=== PATIENT | female | born 1995 | race Caucasian/White ===

== ENCOUNTER 2017-09-11 18:25 | Emergency (ER) | payer MEDICAID ==
[~2017-09-11] VITALS: Ht 165.1 cm; Wt 88.1 kg
[2017-09-11 18:37] VITALS: BP 115/76
--- NOTE | 2017-09-11 19:04 | NUR ---
Patient ambulated to bed 8. RN evaluating patient at bedside.
[2017-09-11 20:31] LABS: APPEARANCE,URINE SL CLOUDY (CLEAR); BILIRUBIN,URINE NEGATIVE (NEGATIVE); BLOOD, URINE 3+ (NEGATIVE); COLOR,URINE YELLOW (YELLOW); LEUKOCYTE ESTERASE ,URINE 1+ (NEGATIVE); NITRITE, URINE NEGATIVE (NEGATIVE); UGLUCOSE NEGATIVE (NEGATIVE)
[2017-09-11 20:36] LABS: RBC,URINE 11-20 (MOD) /HPF (0-5); WBC,URINE 6-15 (FEW) /HPF (0-5)
--- NOTE | 2017-09-11 22:38 | NUR ---
Dr. Kurtz evaluating patient at bedside. Female stuffed casing tier Modesta Merritt EMT with doctor.
--- NOTE | 2017-09-11 22:43 | NUR ---
FEMALE CHAPERONED FOR DR. HASSAN DURING PELVIC EXAM
--- NOTE | 2017-09-12 00:50 | NUR ---
Patient discharged with v/s stable. Written and verbal after care instructions given and explained. Patient alert, oriented and verbalized understanding of instructions. Ambulatory with steady gait. All questions addressed prior to discharge. ID band removed. Patient advised to follow up with PMD. Rx of FLUCONAZOLE 150 MG given. Patient educated on indication of medication including possible reaction and side effects. Opportunity to ask questions provided and answered.
[2017-09-12 01:21] VITALS: BP 130/71
[2017-09-15 06:21] LABS: CHLAMYDIA TRACHOMATIS AMP DNA Positive (Negative)
== END 2017-09-12 00:50 | disposition home or self-care (01) ==
LOC: MED 18:25
DX: B37.3 Candidiasis of vulva and vagina (principal); J45.909 Unspecified asthma, uncomplicated
CPT/HCPCS: 36415; 81001; 81025; 87086; 87210; 87491; 99284

== ENCOUNTER 2017-10-09 02:20 | Emergency (ER) | payer MEDICAID ==
[~2017-10-09] VITALS: Ht 162.6 cm; Wt 88.9 kg
[2017-10-09 02:29] VITALS: BP 138/72
--- NOTE | 2017-10-09 02:32 | NUR ---
PT AMBULATED TO ER BED 2 WITH STEADY GAIT
[2017-10-09] MEDS ORDERED: ONDANSETRON 4 MG/2 ML VIAL IVP ONE (02:35)
[2017-10-09] MEDS ORDERED: NACL 0.9% 1,000 ML IV ONE (02:35)
[2017-10-09] MEDS ORDERED: KETOROLAC 30 MG/ML VIAL IVP ONE (02:55)
--- NOTE | 2017-10-09 03:11 | NUR ---
22Y/F PRESENTS TO ER C/O GENERALIZED BODY PAIN, N/V. PMH ASTHMA, NKA. PT STATES SHE WOKE UP NAUSEOUS W/ VOMITING X4, DENIES DIARRHEA. PT HAS GENERALIZED BODY PAIN, AND DIZZINESS. PT AA&OX4. DENIES SOB. IN BED SIDE RAIL UP X1, ER MD NOTIFIED OF PT STATUS.
[2017-10-09 03:48] VITALS: BP 138/72
--- NOTE | 2017-10-09 03:49 | NUR ---
Patient discharged with v/s stable. Written and verbal after care instructions given and explained. Patient alert, oriented and verbalized understanding of instructions. Ambulatory with steady gait. All questions addressed prior to discharge. ID band removed. Patient advised to follow up with PMD. Rx of MOTRIN 800MG, TAMIFLU 75MG, ZOFRAN 8MG, PREDNISONE 20MG given. Patient educated on indication of medication including possible reaction and side effects. Opportunity to ask questions provided and answered.
== END 2017-10-09 03:49 | disposition home or self-care (01) ==
LOC: MED 02:20
DX: J11.1 Influenza due to unidentified influenza virus with other respiratory manifestations (principal)
CPT/HCPCS: 81025; 96361; 96374; 96375; 99284; J1885; J2405; J7030

== ENCOUNTER 2024-02-22 08:30 | Emergency (ER) | payer SELFPAY ==
[~2024-02-22] VITALS: Ht 165.1 cm; Wt 99.6 kg
[2024-02-22 08:42] VITALS: BP 129/71; PULSE 60; RESP 18; TEMP 97.1; O2SAT 99
[2024-02-22] MEDS: ACETAMINOPHEN EXTRA STRENGTH 500 MG TAB PO ONE (09:34)
[2024-02-22] MEDS: KETOROLAC 30 MG/ML VIAL IM ONE (09:37)
[2024-02-22] MEDS ORDERED: IBUP-2213 PO (11:33)
[2024-02-22 11:44] VITALS: BP 127/80; PULSE 53; RESP 18; TEMP 97.9; O2SAT 100
== END 2024-02-22 11:44 | disposition home or self-care (01) ==
LOC: MED 08:30
DX: S50.11XA Contusion of right forearm, initial encounter (principal); S09.90XA Unspecified injury of head, initial encounter; Z79.899 Other long term (current) drug therapy; V49.88XA Car occupant (driver) (passenger) injured in other specified transport accidents, initial encounter; Y93.89 Activity, other specified; Y92.89 Other specified places as the place of occurrence of the external cause; Y99.8 Other external cause status
CPT/HCPCS: 73090; 81025; 96372; 99283; J1885